=== PATIENT | female | born 1995 | race Caucasian/White ===

== ENCOUNTER 2023-12-26 23:21 | Inpatient (IN) | payer MEDICAID ==
[~2023-12-26] VITALS: Ht 162.6 cm; Wt 105.2 kg
[2023-12-26 23:45] VITALS: PULSE 70; RESP 11; O2SAT 97
[2023-12-27 00:14] LABS: Basophils # (auto) 0 10 ^3/uL (0-0.2); Basophils % (auto) 0.1 % (0.0-2.0); Eosinophils # (auto) 0 10 ^3/uL (0-0.8); Eosinophils % (auto) 0.2 % (0.0-7.0); Hematocrit 40.9 % (36.0-46.0); Hemoglobin 14.2 g/dL (12.2-16.2); Lymphocytes % (auto) 5.5 % (10.0-50.0); Mean Corpuscular Hemoglobin 31.1 pg (28.0-32.0); Mean Corpuscular Hgb Conc. 34.7 g/dL (32.0-36.0); Mean Corpuscular Volume 89.8 fL (80.0-100.0); Monocytes % (auto) 5.2 % (0.0-12.0); Neutrophils # (auto) 16.9 10 ^3/uL (1.6-8.6); Red Blood Cells 4.56 10^6/uL (4.0-5.20); Red Cell Distribution Width 12.4 % (11.8-14.3)
[2023-12-27 00:26] LABS: Alanine Aminotransferase 18 U/L (7-40); Albumin 4.7 g/dL (3.2-4.8); Alkaline Phosphatase 64 U/L (46-116); Anion Gap 9 (5-15); Aspartate Aminotransferase < 8 U/L (13-40); BUN/Creatinine Ratio 7.8 (10.0-20.0); Bilirubin, Total 0.6 mg/dL (0.2-1.0); Blood Urea Nitrogen 10 mg/dL (9-23); Calcium 9.9 mg/dL (8.7-10.4); Carbon Dioxide 21 mmol/L (20-30); Chloride 108 mmol/L (98-107); Glucose 119 mg/dL (74-106); Potassium 3.8 mmol/L (3.5-5.1); Sodium 138 mmol/L (136-145); Total Protein 7.2 g/dL (5.7-8.2)
[2023-12-27] MEDS: ONDANSETRON HCL 4 MG/2 ML VIAL IV ONE (02:18)
[2023-12-27] MEDS: MORPHINE SULFATE 4 MG/ML SYR/VIAL IV ONE (02:19)
[2023-12-27] MEDS: cefTRIAXone 1GM/50ML D5W 50 ML IV ONE (02:19)
[2023-12-27] MEDS: HYDROmorphone HCL 2 MG/ML VL/or syr IV ONE (03:30)
[2023-12-27] MEDS ORDERED: ACETAMINOPHEN 325 MG TAB PO PRN (04:15)
[2023-12-27 04:38] LABS: Urine Bacteria None Seen /hpf (None Seen)
[2023-12-27 04:49] LABS: Urine Blood 3+ /uL (Negative); Urine Clarity Turbid (Clear); Urine Color Yellow (Yellow); Urine Mucus FEW (None Seen); Urine Protein, UAD 2+ (Negative); Urine Specific Gravity 1.037 (1.001-1.035); Urine Urobilinogen Normal (Negative); Urine WBC 4 /hpf (0 - 5)
[2023-12-27] MEDS: TAMSULOSIN HYDROCHLORIDE 0.4 MG CAP PO SCH (04:58)
[2023-12-27 05:44] LABS: Basophils # (auto) 0 10 ^3/uL (0-0.2); Basophils % (auto) 0.1 % (0.0-2.0); Eosinophils # (auto) 0 10 ^3/uL (0-0.8); Eosinophils % (auto) 0.1 % (0.0-7.0); Hematocrit 40.8 % (36.0-46.0); Hemoglobin 13.8 g/dL (12.2-16.2); Lymphocytes # (auto) 0.8 10 ^3/uL (0.4-5.4); Lymphocytes % (auto) 6.1 % (10.0-50.0); Mean Corpuscular Hemoglobin 31.1 pg (28.0-32.0); Mean Corpuscular Hgb Conc. 33.9 g/dL (32.0-36.0); Mean Corpuscular Volume 91.6 fL (80.0-100.0); Monocytes # (auto) 0.6 10 ^3/uL (0-1.3); Monocytes % (auto) 4.6 % (0.0-12.0); Neutrophils # (auto) 12.3 10 ^3/uL (1.6-8.6); Neutrophils % (auto) 89.1 % (37.0-80.0); Red Blood Cells 4.45 10^6/uL (4.0-5.20); Red Cell Distribution Width 12.7 % (11.8-14.3); White Blood Cell 13.8 10^3/uL (4.4-10.8)
[2023-12-27 06:01] LABS: INR 1.03 (0.9-1.15); Prothrombin Time 10.9 sec (9.3-11.8)
[2023-12-27 06:12] LABS: Chloride 109 mmol/L (98-107); Potassium 4.1 mmol/L (3.5-5.1); Sodium 139 mmol/L (136-145)
[2023-12-27 06:13] LABS: Anion Gap 8 (5-15); Calcium 9.7 mg/dL (8.5-10.1); Carbon Dioxide 22 mmol/L (20-30)
[2023-12-27 06:18] LABS: BUN/Creatinine Ratio 6.3 (10.0-20.0); Blood Urea Nitrogen 9 mg/dL (9-23); Glucose 93 mg/dL (74-106)
[2023-12-27] MEDS: MANNITOL FTV 25% 12.5 GM/50 ML 50 ML IV ONE (07:56)
[2023-12-27] MEDS: MORPHINE SULFATE INJ 2 MG/ml SYRG IV PRN (07:57)
[2023-12-27] MEDS: ONDANSETRON HCL 4 MG/2 ML VIAL IV PRN (07:57)
[2023-12-27] MEDS: SODIUM CHLORIDE 0.9% 1,000 ML IV SCH ×2 (08:00→12:21)
[2023-12-27 08:21] VITALS: PULSE 71; RESP 19; O2SAT 96
[2023-12-27 20:00] VITALS: PULSE 83; RESP 20; O2SAT 96
[2023-12-27 22:30] VITALS: BP 111/66; PULSE 75; RESP 18; TEMP 98.1; O2SAT 91
[2023-12-27 23:59] VITALS: BP 111/66; PULSE 78; RESP 18; TEMP 98.1; O2SAT 98
[2023-12-28] VITALS (8 sets, daily range): BP systolic 108–115; BP diastolic 48–81; PULSE 62–90; RESP 16–20; TEMP 97.9–98.7; O2SAT 93–98
[2023-12-28] MEDS: cefTRIAXone 1GM/50ML D5W 50 ML IV SCH (02:01)
[2023-12-28 06:54] LABS: Basophils # (auto) 0 10 ^3/uL (0-0.2); Basophils % (auto) 0.5 % (0.0-2.0); Eosinophils # (auto) 0.1 10 ^3/uL (0-0.8); Eosinophils % (auto) 2.1 % (0.0-7.0); Hematocrit 35.7 % (36.0-46.0); Hemoglobin 12.2 g/dL (12.2-16.2); Lymphocytes # (auto) 1.6 10 ^3/uL (0.4-5.4); Lymphocytes % (auto) 28.9 % (10.0-50.0); Mean Corpuscular Hemoglobin 31.2 pg (28.0-32.0); Mean Corpuscular Hgb Conc. 34.2 g/dL (32.0-36.0); Mean Corpuscular Volume 91.3 fL (80.0-100.0); Monocytes # (auto) 0.5 10 ^3/uL (0-1.3); Monocytes % (auto) 9.2 % (0.0-12.0); Neutrophils # (auto) 3.3 10 ^3/uL (1.6-8.6); Neutrophils % (auto) 59.3 % (37.0-80.0); Red Blood Cells 3.91 10^6/uL (4.0-5.20); Red Cell Distribution Width 12.5 % (11.8-14.3); White Blood Cell 5.6 10^3/uL (4.4-10.8)
[2023-12-28 07:07] LABS: Anion Gap 10 (5-15); Carbon Dioxide 21 mmol/L (20-30); Chloride 109 mmol/L (98-107); Potassium 3.5 mmol/L (3.5-5.1); Sodium 140 mmol/L (136-145)
[2023-12-28 07:08] LABS: Calcium 8.9 mg/dL (8.7-10.4)
[2023-12-28 07:13] LABS: BUN/Creatinine Ratio 12.8 (10.0-20.0); Blood Urea Nitrogen 10 mg/dL (9-23); Glucose 70 mg/dL (74-106)
[2023-12-28] MEDS ORDERED: ACETAMINOPHEN 325 MG TAB PO PRN (18:00)
[2023-12-28] MEDS: SODIUM CHLORIDE 0.9% 1,000 ML IV SCH (19:14)
[2023-12-28] MEDS: FUROSEMIDE 20 MG/2 ML VIAL IV ONE (19:14)
[2023-12-28] MEDS: HYDROcodone-ACET 5/325MG TAB PO PRN (19:18)
[2023-12-28] MEDS: POTASSIUM EFFERVESENT TAB 25 MEQ PO SCH (21:53)
[2023-12-29] VITALS (7 sets, daily range): BP systolic 100–121; BP diastolic 57–85; PULSE 71–125; RESP 14–18; TEMP 36.9; O2SAT 94–97
[2023-12-29 01:35] LABS: Amphetamine Screen, Urine Neg (NEGATIVE); Barbiturate Scree,Urine Neg (NEGATIVE); Benzodiazephine Screen, Urine Neg (NEGATIVE); Cannabinoid Screen, Urine Neg (NEGATIVE); Cocaine Screen, Urine Neg (NEGATIVE); Opiate Scree,Urine Neg (NEGATIVE); Phencyclidine Screen, Urine Neg (NEGATIVE)
[2023-12-29 06:38] LABS: Calcium 8.6 mg/dL (8.5-10.1); Chloride 108 mmol/L (98-107); Potassium 3.6 mmol/L (3.5-5.1); Sodium 140 mmol/L (136-145)
[2023-12-29 06:39] LABS: Anion Gap 7 (5-15); Carbon Dioxide 25 mmol/L (20-30)
[2023-12-29 06:44] LABS: BUN/Creatinine Ratio 11.5 (10.0-20.0); Blood Urea Nitrogen 9 mg/dL (9-23); Glucose 80 mg/dL (74-106)
[2023-12-29] MEDS ORDERED: TAMS-35 PO (15:08)
[2023-12-29] MEDS ORDERED: IBUP-1454 PO (15:08)
[2023-12-30 08:44] LABS: Hepatitis B Surface Antigen Negative (Negative)
[2023-12-30 09:06] LABS: Hepatitis C Antibody Negative (Negative)
== END 2023-12-29 18:08 | disposition home or self-care (01) | DRG 469 ==
LOC: ER 23:21 → TELE 12-27 04:56 → TELE-WESTW 12-27 04:56
PROVIDERS: ADMIT Nurse Practitioner Family; ATTEND Hospitalist
DX: N17.9 Acute kidney failure, unspecified (principal); R16.0 Hepatomegaly, not elsewhere classified; N13.6 Pyonephrosis; D72.829 Elevated white blood cell count, unspecified; F41.9 Anxiety disorder, unspecified; Z87.440 Personal history of urinary (tract) infections; Z79.899 Other long term (current) drug therapy; Z87.891 Personal history of nicotine dependence
CPT/HCPCS: 36415; 74176; 80048; 80053; 80307; 81001; 83605; 84702; 85025; 85610; 86803; 87340; G0378; J2405